=== PATIENT | male | born 1950 | race Caucasian/White ===

== ENCOUNTER 2025-01-19 09:24 | Outpatient (AMB) | payer MEDICARE, SELFPAY ==
--- NOTE | 2025-01-19 09:13 | A.OFFPC_ITS ---
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 Accompanied by: Daughter Allergies No Known Allergies Allergy (Verified 01/19/25 09:31) Medication List - Last Reconciled 01/19/25 by Domi Longo MD albuterol sulfate 90 mcg/actuation 2 puffs inhalation QID PRN doxycycline hyclate 100 mg PO DAILY gabapentin 100 mg PO BID metoprolol tartrate 12.5 mg PO BID olanzapine 5 mg PO BEDTIME pantoprazole 40 mg PO DAILY Tobacco use date assessed: 01/19/25 Fall risk assessment: No Falls in past year Last assessed Fall Risk: 01/19/25 Dental Screening Dental Screen Date: 01/19/25 Did you have a dental visit in the last 12 months?: No Did you have a dental problem in the last 6 months where you did not have access to dental care?: No HPI HPI Comments History of Present Illness Details The patient is a 74-year-old male presenting to [facility]. Ocular Injury post fall with trauma to face now s/p surgery: Had an eye procedure pending follow up with oculoplastics Dr. Camacho in Fall. Neuropathic Pain: Initially treated with gabapentin for eye pain post fall and fractures, not currently symptomatic. Peripheral Edema: Ankle swelling noted bilaterally, sometimes fluctuates with activity. Rosacea: Requires ongoing doxycycline for control of skin symptoms. Dementia/TBI/Anxiety- episodes of mood swings and aggression, take zyprexa at night Atrial fibrillation- now in NSR, has been on metoprolol since hospital course. The patient takes pantoprazole since prolonged hospital stay for traumatic brain injury that occurred after a fall from a ladder. No current heartburn. Medical History: - Atrial fibrillation - Neuropathic Pain - Anxiety - Dementia - TBI - Prolonged hospital course at [facility] - DVT- upper extremity - Rosacea Social History: - Lives with , daughter and granddau ghters. History of episodes of mood swings , aggression. Review of Systems - Gastrointestinal: Denies heartburn. - Ophthalmologic: No complaints followin g eye surgery. - Respiratory: Denies shortness of breat h or need for inhaler. - Cardiovascular: Denies chest pain but reports ankle edema. Physical Exam -General: NAD Chest: slightly coarse breath sounds bilaterally Card: normal s1, s2 Abd: SNTND, +BS Extremities: 1+ edema bilaterally Neuro: AOX3 Assessment and Plan 1. Rosacea - continue doxycycline 2. Neuropathic Pain - Continue gabapentin; symptoms controll ed. 3. Peripheral Edema - Modify diet; schedule ultrasound for e valuation. 4. - Reduce pantoprazole to every other day and monitor.. Discussion Notes During the visit, we discussed the management of ongoing medications and medical issues. Neuropathic pain management continues with gabapentin, as symptoms appear to be controlled. Discussed use of albuterol prn for any wheezing or SOB episodes. Follow up in 3 months. Patient Instructions - Continue pantoprazole every other day. - Plan for eye follow-up in January. - Maintain gabapentin dose. - Adjust diet to lower salt and sugar in take. - Expect an ultrasound appointment. - Refill and continue doxycycline. [facility] Medical History (Updated 01/19/25 @ 12:59 by Domi Longo MD) DVT of upper extremity (deep vein thrombosis) Atrial fibrillation Swelling of lower extremity Rosacea Traumatic brain injury Anxiety Dementia Social History Housing: House Patient Tobacco Use Status: Former Tobacco user Years Smoked: 60 years e-Cigarette/Vaping Use: Never Used service: Yes Current occupational status: disabled Questionnaire AUDIT C Alcohol Use Questionnaire (AUDIT-C) 1. How often do you have a drink containing alcohol?: Monthly or less 2. How many drinks containing alcohol do you have on a typical day when you are drinking?: 1 or 2 3. How often do you have six or more drinks on one occasion?: Never Total Score: 1 Physical exam (Primary Care) Vital Signs: Last Vital Signs Temp 97.6 F 01/19/25 09:29 Pulse 63 01/19/25 09:29 Resp 16 01/19/25 09:29 BP 120/70 01/19/25 09:29 Pulse Ox 94 01/19/25 09:29 Oxygen Delivery Method Room Air 01/19/25 09:29 BMI result Body Mass Index 28.8 Tobacco/Smoking Status: Tobacco use Status Tobacco use date assessed 01/19/25 01/19/25 09:14 Patient Tobacco Use Status Former Tobacco user 01/19/25 09:34 e-Cigarette/Vaping Use Never Used 01/19/25 09:34 Coding Level of Care Code Est Pt Level 4 (66017) Complex EM visit Add On G2211 Diagnoses Dementia F03.90 Dementia type: unspecified type Dementia severity: unspecified severity Swelling of lower extremity M79.89 Rosacea L71.9 Anxiety F41.9 Assessment & Plan Assessment & Plan (1) Dementia: Code(s): F03.90 - Unspecified dementia, unspecified severity, without behavioral disturbance, psychotic disturbance, mood disturbance, and anxiety Category: Medical Qualifiers: Dementia type: unspecified type Dementia severity: unspecified severity (2) Swelling of lower extremity: Code(s): M79.89 - Other specified soft tissue disorders Category: Medical Plan: obtain ultrasound r/o DVT (3) Rosacea: Code(s): L71.9 - Rosacea, unspecified Category: Medical (4) Anxiety: Code(s): F41.9 - Anxiety disorder, unspecified Category: Medical Plan - Adjust pantoprazole to every other day with plan for discontinuation. - Continue gabapentin. - Albuterol prn - Obtain ultrasound for leg swelling r/o DVT Orders: Orders US venous duplex LE BI Today M79.89 - Other specified soft tissue disorders Medications: New mupirocin 2% (Centany) 1 appl topical TID 22 grams 0RF doxycycline hyclate 100 mg PO DAILY 90 caps 3RF
[2025-01-19 09:29] VITALS: BP 120/70; PULSE 63; RESP 16; TEMP 36.4; O2SAT 94; BMI 28.8
--- OUTSIDE RECORDS SUMMARY | 2025-01-19 10:41 | XMS_ITS | Clinical Summary ---
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 10/23/19 24 Active albuterol 2.5 mg/3 mL (0.083%) nebulizer solution Inhale 1 vial (2.5 mg total) via nebulizer every 4 hours as needed for wheezing or shortness of breath. 10/23/19 24 Active apixaban (ELIQUIS) 5 mg tablet Take 1 tablet (5 mg total) by mouth every 12 hours. 10/23/19 24 Active bisacodyL (DULCOLAX) 10 mg suppository Insert 1 suppository (10 mg total) into the rectum daily as needed for constipation. 10/23/19 24 Active carboxymethylcellu lose (REFRESH PLUS) 0.5% ophthalmic solution Instill 1 drop into the right eye 3 times a day as needed for dry eyes. 10/23/19 24 Active cloNIDine (CATAPRES-TTS) 0.2 mg/[address] 1 patch (0.2 mg total) on the skin once a week. 10/28/19 24 Active metoprolol tartrate (LOPRESSOR) 25 mg tablet Take 0.5 tablets (12.5 mg total) by mouth every 12 hours. 10/23/19 24 Active nicotine (NICODERM CQ) 14 mg/[address] 1 patch on the skin once a day. 10/24/19 24 Active OLANZapine (ZyPREXA Zydis) 5 mg disintegrating tablet Dissolve 0.5 tablets (2.5 mg total) in the mouth 3 times a day. 10/23/[address] (PROTONIX) 40 mg tablet Take 1 tablet (40 mg total) by mouth once a day. 10/24/19 Active polyethylene glycol 3350 (MIRALAX) 17 gram packet Take 1 packet (17 g total) by mouth daily as needed for constipation. Mix powder in 4 to 8 oz of water, juice, coffee, or tea prior to administration. 10/23/19 Active senna (SENOKOT) 8.6 mg tablet Take 2 tablets (17.2 mg total) by mouth nightly. 10/23/19 Active white petrolatum-mineral oiL (GENTEAL PM) 94-3 % ointment ophthalmic ointment Apply 0.25 inches to right eye nightly. 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 10/02/2023 Impaired cognition 10/01/2023 Paroxysmal atrial fibrillation 09/29/2023 Overview (10/01/2023): New dx 09/2023 TBI (traumatic brain injury) 09/25/2023 Hemotympanum, right 09/22/2023 Assessment & Plan (09/22/2023 5:24 PM EDT): ENT c/s ofloxacin ear drops, follow up opt in 6-8 weeks Appreciate recs Fracture of right scapula 09/22/2023 Assessment & Plan (09/22/2023 5:40 PM EDT): Acute comminuted and displaced right scapular fracture - Ortho c/s Facial fracture 09/22/2023 Assessment & Plan (09/22/2023 5:40 PM EDT): Extensive right-sided calvarial and facial fractures Right maxillofacial fracture involving the zygomaticomaxillary complex involvement of the right sphenoid sinus with associated pneumocephalus - PRS c/s SDH (subdural hematoma) 09/22/2023 Assessment & Plan (09/22/2023 5:40 PM EDT): Bilateral SAH Small left SDH Mass effect with no midline shift - NSGY c/s [ ] repeat CTH 2230 Rib fractures 09/22/2023 Assessment & Plan (09/22/2023 5:40 PM EDT): Acute right 5-8th rib fractures Associated right pulmonary contusions and trace hemopneumothorax. 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 Resolved Problems Problem Noted Date Diagnosed Date Resolved Date Urinary retention 10/04/2023 2023 Hemothorax on right 10/04/2023 10/23/19 24 Postextubation stridor 10/04/202310/10 Persistent hyperactive delir ium due to multiple etiologies 09/26/2023 2023 Hyponatremia 09/22/2023 10/10/2023 Assessment & Plan (09/22/2023 5:36 PM EDT): Na 134 Leukocytosis 09/22/2023 2023 Elevated lactic acid level 09/22/2023 0 10/01/2023 Assessment & Plan (09/22/2023 5:24 PM EDT): LA 2.9 on admission, clinical significance unknown Fluid resuscitate until clear Social History Tobacco Use Types Packs/Day Years Used Date Smoking Tobacco: Every Day Cigarettes 0.5 56.8 Started: 1969 Tobacco Cessation:Ready to Q uit: Yes; Counseling Given: No Comments:Nicotine patch applied Sex and Gender Information Value Date Recorded Sex Assigned at Male 09/22/2023 5:30 PM EDT Legal Sex Male 11:48 AM EDT Gender Identity Male 09/22/2023 5:32 PM EDT Sexual Orientation Not on file Last Filed Vital Signs Vital Sign Reading Time Taken Comments Blood Pressure 132/74 2023 3:13 PM EDT Pulse 70 2023 3:13 PM EDT Temperature 36.6 C (97.9 F) 2023 3:13 PM EDT Respiratory Rate 18 2023 3:13 PM EDT Oxygen Saturation 95% 2023 3:13 PM EDT Inhaled Oxygen Concentration - - Weight 73.2 kg (161 lb 6 oz) 10/21/2023 6:05 AM EDT Height 182 cm (5' 11.65 ) 10/06/2023 7:59 AM EDT Body Mass Index 22.1 10/06/2023 7:59 AM EDT Plan of Treatment Health Maintenance Due Date Last Done Comments Cologuard 1950 Colon Cancer Screening 1950 Colonoscopy 1950 FOBT / Fit Test 1950 Hepatitis C Screening 1950 Sigmoidoscopy 1950 Zoster Vaccines (1 of 2) 10/24/1999 Alcohol/Substance Use Screening 03/25/2024 Depression Screening and Follow-Up 03/25/2024 Health Care Proxy Review 03/25/2024 Social Drivers of Health Annual Screening 03/25/2024 CT Lung Cancer Screening (Baseline) 10/01/2024 10/02/2023, 09/22/2023 RSV Vaccine (60+ years old and patients) (1 - 1-dose 75+ series) 2024 COVID-19 Vaccine ( - season) 2024 Influenza Vaccine (#1) 2024 , 02/02/2021, 03/23/2016, Additional history exists DTaP,Tdap,and Td Vaccines (2 - Td or Tdap) 10/01/2028 10/01/2018, 04/08/2009 Pneumococcal Vaccine: 50+ Years Completed 10/13/2020, 07/18/2017, 12/28/2009 Hepatitis B Vaccines Aged Out No long er eligible based on patient's age to complete this topic Procedures * Due to [place] [employer] law, this organization might not be sharing negative HIV tests. Procedure Name Priority Date/Time Associated Diagnosis Comments CT CHEST W CONTRAST Routine 10/02/2023 1 2:26 PM EDT from Last 3 Months or Most Recently Relevant to Health Maintenance Results * Due to [facility] law, this organization might not be sharing negative HIV tests. * CT Chest W Contrast (10/02/2023 12:26 PM EDT) Anatomical Region Laterality Modality Body Computed Tomogra phy 10/02/2023 2:00 PM EDT Impressions 10/02/2023 3:01 PM EDT 1. Increased bilateral pleural effusions (moderate on the right and new on the left) and bibasilar atelectasis, right greater than left. However, no dependent hyperdensities in the pleural effusions to suggest hemothorax. 2. Increased trace pericardial effusion. 3. I, Vannessa Arambula, have reviewed the examination and concur with the findings as reported or so edited. Trainee: Lupis Ulrich If this radiology report contains a blank impression section, it is an incomplete radiology report. Please contact the interpreting radiologist or applicable radiology division as soon as possible to obtain the completed interpretation. Workstation ID: [id number] Narrative 10/02/2023 3:[address] CHEST W CONTRAST Indication: assess for expanding hemothorax on right Technique: Examination was performed of the chest following the intravenous administration of intravenous contrast material. Axial, coronal and sagittal MPRs, axial MIP and coronal MinIP reformations were performed. Dose: For radiation dose control at least one of the following techniques was used in this procedure (1) Automated exposure control (2) Adjustment of the mA and/or kV according to patient size (3) Use of iterative reconstruction technique. Comparison: CT chest 09/22/2023. Chest radiographs 10/02/2023. FINDINGS: Neck and thoracic inlet: No abnormality. MEDIASTINUM AND LARGE VESSELS: Aorta Normal aortic diameter. Mild calcified atherosclerotic plaque. Pulmonary arteries Unremarkable shape and diameter. No acute central pulmonary embolism. Esophagus Nondilated. Nasogastric tube in place. Other mediastinal findings Left PICC tip in the lower SVC. HEART: Cardiac size Mild cardiomegaly. Coronary arteries Mild coronary calcifications. Valves No valvular calcifications. Pericardium Increased trace pericardial effusion. LYMPH NODES: Supraclavicular and axillary Normal sized lymph nodes, no enlarged lymph nodes. Mediastinal Similar mildly enlarged right paratracheal lymph nodes measuring up to 13 mm in short axis (2041:288), likely reactive. Hilar Normal sized lymph nodes, no enlarged lymph nodes. Others None. LUNG PARENCHYMA: Increased bibasilar relaxation atelectasis, right greater than left with near complete collapse of the right lower lobe. Previously seen right pulmonary consolidation/contusions either resolved or obscured by increased pleural effusions and right basilar atelectasis. Airways: Endotracheal tube in place, terminating in the upper thoracic trachea. Pleura: Bilateral pleural effusions, increased moderate on the right and new small on the left. No pneumothorax. UPPER ABDOMEN: Nasogastric tube tip in the gastric lumen. Atherosclerotic calcification of the abdominal aorta. Small splenule at the splenic hilum. CHEST WALL AND BONES: Redemonstrated displaced/comminuted fractures of the right 5th-8th ribs and right scapular body, similar to prior. Moderate degenerative changes of the thoracic spine. Sclerotic areas in bilateral medial clavicles, likely bone islands. Resulting Agency Comment [id number] Procedure Note Vannessa Arambula MD - 10/02/2023 CT CHEST W CONTRAST Indication: assess for expanding hemothorax on right Technique: Examination was performed of the chest following theintravenous administration of intravenous contrast material. Axial,coronal and sagittal MPRs, axial MIP and coronal MinIP reformations wereperformed. Dose: For radiation dose control at least one of the following techniqueswas used in this procedure (1) Automated exposure control (2) Adjustmentof the mA and/or kV according to patient size (3) Use of iterativereconstruction technique. Comparison: CT chest 09/22/2023. Chest radiographs 10/02/2023. FINDINGS: Neck and thoracic inlet: No abnormality. MEDIASTINUM AND LARGE VESSELS: Aorta Normal aortic diameter. Mild calcified atherosclerotic plaque. Pulmonary arteries Unremarkable shape and diameter. No acute central pulmonary embolism. Esophagus Nondilated. Nasogastric tube in place. Other mediastinal findings Left PICC tip in the lower SVC. HEART: Cardiac size Mild cardiomegaly. Coronary arteries Mild coronary calcifications. Valves No valvular calcifications. Pericardium Increased trace pericardial effusion. LYMPH NODES: Supraclavicular and axillary Normal sized lymph nodes, no enlarged lymph nodes. Mediastinal Similar mildly enlarged right paratracheal lymph nodes measuring up to 13mm in short axis (2040:288), likely reactive. Hilar Normal sized lymph nodes, no enlarged lymph nodes. Others None. LUNG PARENCHYMA: Increased bibasilar relaxation atelectasis, right greater than left withnear complete collapse of the right lower lobe. Previously seen rightpulmonary consolidation/contusions either resolved or obscured byincreased pleural effusions and right basilar atelectasis. Airways: Endotracheal tube in place, terminating in the upper thoracic trachea. Pleura: Bilateral pleural effusions, increased moderate on the right and new smallon the left. No pneumothorax. UPPER ABDOMEN: Nasogastric tube tip in the gastric lumen. Atherosclerotic calcificationof the abdominal aorta. Small splenule at the splenic hilum. CHEST WALL AND BONES: Redemonstrated displaced/comminuted fractures of the right 5th-8th ribsand right scapular body, similar to prior. Moderate degenerative changesof the thoracic spine. Sclerotic areas in bilateral medial clavicles,likely bone islands. IMPRESSION: 1. Increased bilateral pleural effusions (moderate on the right and newon the left) and bibasilar atelectasis, right greater than left.However, no dependent hyperdensities in the pleural effusions to suggesthemothorax. 2. Increased trace pericardial effusion. 3. I, Vannessa Arambula, have reviewed the examination and concur with thefindings as reported or so edited. Trainee: Lupis Ulrich If this radiology report contains a blank impression section, it is anincomplete radiology report. Please contact the interpreting radiologistor applicable radiology division as soon as possible to obtain thecompleted interpretation. 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 Expl anation Health Care Proxy 10/04/2023 4:39 PM 07-15 Health Care Proxy 10/04/2023 1:19 PM 07-15 Health Care Proxy 09/24/2023 8:26 AM in g Second Witness Signature 07/15/2013 * Full Code (Latest Code Status on File) Date Activated Date Inactivated Comments 09/22/2023 10:03 PM 2023 8:49 PM Healthcare Agents on File Name Relationship Healthcare Agent [facility] p Communication Marline Tanvi Daughter Alternate Health Care A gent Jj Tinajero Spouse Health Care Agent Care Teams Welder Operator Relationship Specialty Start Date End Date Ref, Has No Pcp Or DO NOT EDIT THIS RECORD VIA PROVIDER ON THE FLY PCP - General 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
--- OUTSIDE RECORDS SUMMARY | 2025-01-19 10:41 | XMS_ITS | Encounter Summary ---
Author Organization [facility] Address [address] [place] [address] Care Team Providers Care Muck Boss Name Role Phone Ref, Has No Pcp Or Primary Care Provider Unavail able Encounter Details Date Type Department Care Team (Late st Contact Info) Description 2023 Lab Requisition [facility] [address] [place] [address] [facility] [address] [place] [id number] Social History Tobacco Use Types Packs/Day Years Used Date Smoking Tobacco: Every Day Cigarettes 0.5 56.8 Started: 1969 Comments:Nicotine patch appl ied Sex and Gender Information Value Date Recorded Sex Assigned at Male 09/22/2023 5:30 PM EDT Legal Sex Male 11:48 AM EDT Gender Identity Male 09/22/2023 5:32 PM EDT Sexual Orientation Not on file documented as of this encounter Plan of Treatment Not on file documented as of this encounter Procedures * Due to [place] state law, this organization might not be sharing negative HIV tests. Procedure Name Priority Date/Time Associated Diagnosis Comments CBC AUTO DIFFERENTIAL Routine 11/04/2023 5:00 AM EDT BASIC METABOLIC PANEL Routine 11/04/2023 5:00 AM EDT CBC AUTO DIFFERENTIAL Routine 10/31/2023 5:00 AM EDT BASIC METABOLIC PANEL Routine 10/31/2023 5:00 AM EDT CBC AUTO DIFFERENTIAL Routine 10/28/2023 5:00 AM EDT BASIC METABOLIC PANEL Routine 10/28/2023 5:00 AM EDT CBC AUTO DIFFERENTIAL Routine 10/24/2023 5:00 AM EDT ALBUMIN Routine 10/24/2023 5:00 AM EDT BASIC METABOLIC PANEL Routine 10/24/2023 5:00 AM EDT documented in this encounter Results * Due to [place] state law, this organization might not be sharing negative HIV tests. * Basic Metabolic Panel (11/04/2023 5:00 AM EDT) NA 141 136 - 145 mmol/L 11/04/2023 11:27 AM EDT [facility] K 4.0 3.5 - 5.1 mmol/L 11/04/2023 11:27 AM EDT [facility] Cl 102 98 - 109 mmol/L 11/04/2023 11:27 AM EDT [facility] CO2 32 23 - 32 mmol/L 11/04/2023 11:27 AM EDT [facility] BUN 20 8 - 23 mg/dL 11/04/2023 11:27 AM EDT [facility] Creatinine 0.73 0.50 - 1.12 mg/dL 11/04/2023 11:27 AM EDT [facility] Glucose 84 60 - 99 mg/dL 11/04/2023 11:27 AM EDT [facility] Calcium 9.8 8.4 - 10.4 mg/dL 11/04/2023 11:27 AM EDT [facility] Anion Gap 11 >=0 11/04/2023 11:27 AM EDT [facility] eGFR >90 >=60 mL/min/1. 73m2 11/04/2023 11:27 AM EDT [facility] Comment:The estimated glomer ular filtration rate (eGFR) is calculated using a new formula developed by the NKF-ASN task force to eliminate race-based correction factors. The new formula uses serum/plasma creatinine, age, and gender to determine eGFR. A value below 60mls/min might indicate kidney disease and will be flagged. For additional information, see Tyree et al, Am J Kidney Dis. 2021;79(2):268- 288, A Unifying Approach for GFR estimation: Recommendations of the NKF-ASN Task Force on Reassessing the Inclusion of Race in Diagnosing Kidney Disease . Blood Structure of peripheral vein / Unknown Venipuncture / Unknown 11/04/2023 5:00 AM EDT 11/04/2023 8:23 AM EDT [facility] - 11/04/2023 11:27 AM EDT NUR2\S\209\S\A\S\0156\S\S\BED\S\0156 us Walter Atoofi PA LAB BLOOD ORDERABLES Final Resul t [facility] [address] [place] [address] [address] [place] [address], * (ABNORMAL) CBC Auto Differential (11/04/2023 5:00 AM EDT) WBC 11.8(H) 4.8 - 10.8 10*3/uL 11/04/2023 10:59 AM EDT [facility] RBC 3.54(L) 4.70 - 6.10 10*6/uL 11/04/2023 10:59 AM EDT [facility] Hemoglobin 10.6(L) 13.7 - 16.5 g/dL 11/04/2023 10:59 AM EDT [facility] Hematocrit 32.1(L) 40.5 - 48.5 % 11/04/2023 10:59 AM EDT [facility] MCV 90.7 80.0 - 94.0 fL 11/04/2023 10:59 AM EDT [facility] MCH 29.9 26.0 - 34.0 pg 11/04/2023 10:59 AM EDT [facility] MCHC 33.0 31.0 - 36.0 g/dL 11/04/2023 10:59 AM EDT [facility] RDW 13.7 12.0 - 15.0 % 11/04/2023 10:59 AM EDT [facility] RDW Standard Deviation 45.9(H) 35.1 - 43.9 fL 11/04/2023 10:59 AM EDT [facility] Platelets 239 140 - 440 10*3/uL 11/04/2023 10:59 AM EDT [facility] MPV 10.4 9.4 - 12.4 fL 11/04/2023 10:59 AM EDT [facility] Neutrophil % 66.8 50.0 - 75.0 % 11/04/2023 10:59 AM EDT [facility] Immature Grans % 0.3 0.0 - 0.9 % 11/04/2023 10:59 AM EDT [facility] Lymphocyte % 26.4 20.0 - 44.0 % 11/04/2023 10:59 AM EDT [facility] Monocyte % 5.7 0.0 - 14.0 % 11/04/2023 10:59 AM EDT [facility] Eosinophil % 0.5 0.0 - 5.0 % 11/04/2023 10:59 AM EDT [facility] Basophil % 0.3 0.0 - 2.0 % 11/04/2023 10:59 AM EDT [facility] Neutrophil # 7.91(H) 1.80 - 7.70 10*3/uL 11/04/2023 10:59 AM EDT [facility] Immature Grans # 0.04(H) 0.00 - 0.03 10*3/uL 11/04/2023 10:59 AM EDT [facility] Lymphocyte # 3.10 1.00 - 4.75 10*3/uL 11/04/2023 10:59 AM EDT [facility] Monocyte # 0.70 0.00 - 6.00 10*3/uL 11/04/2023 10:59 AM EDT [facility] Eosinophil # 0.10 0.00 - 0.80 10*3/uL 11/04/2023 10:59 AM EDT [facility] Basophil # <0.03 0.00 - 0.20 10*3/uL 11/04/2023 10:59 AM EDT [facility] nRBC % 0.0 0 - 0 /100 WBCs 11/04/2023 10:59 AM EDT [facility] nRBC # <0.01 0.00 - 0.13 10*3/uL 11/04/2023 10:59 AM EDT [facility] Blood Structure of peripheral vein / Unknown Venipuncture / Unknown 11/04/2023 5:00 AM EDT 11/04/2023 8:20 AM EDT us Walter Atoofi PA LAB BLOOD ORDERABLES Final Resul t [facility] [address] [facility] [address] [place] [address], [place] [phone] * Basic Metabolic Panel (10/31/2023 5:00 AM EDT) NA 138 136 - 145 mmol/L 10/31/2023 10:07 AM EDT [facility] K 4.1 3.5 - 5.1 mmol/L 10/31/2023 10:07 AM EDT [facility] Cl 100 98 - 109 mmol/L 10/31/2023 10:07 AM EDT [facility] CO2 31 23 - 32 mmol/L 10/31/2023 10:07 AM EDT [facility] BUN 20 8 - 23 mg/dL 10/31/2023 10:07 AM EDT [facility] Creatinine 0.78 0.50 - 1.12 mg/dL 10/31/2023 10:07 AM EDT [facility] Glucose 87 60 - 99 mg/dL 10/31/2023 10:07 AM EDT [facility] Calcium 10.0 8.4 - 10.4 mg/dL 10/31/2023 10:07 AM EDT [facility] Anion Gap 11 >=0 10/31/2023 10:07 AM EDT [facility] eGFR >90 >=60 mL/min/1. 73m2 10/31/2023 10:07 AM EDT [facility] Comment:The estimated glomer ular filtration rate (eGFR) is calculated using a new formula developed by the NKF-ASN task force to eliminate race-based correction factors. The new formula uses serum/plasma creatinine, age, and gender to determine eGFR. A value below 60mls/min might indicate kidney disease and will be flagged. For additional information, see Tyree et al, Am J Kidney Dis. 2021;79(2):268- 288, A Unifying Approach for GFR estimation: Recommendations of the NKF-ASN Task Force on Reassessing the Inclusion of Race in Diagnosing Kidney Disease . Blood Structure of peripheral vein / Unknown Venipuncture / Unknown 10/31/2023 5:00 AM EDT 10/31/2023 6:42 AM EDT Narrative [facility] - 10/31/2023 10:07 AM EDT NUR2\S\209\S\A\S\0156\S\S\BED\S\0156 us Walter Atoofi [place] LAB BLOOD ORDERABLES Final Resul t [facility] [address] [facility] [address] [place] [address], * (ABNORMAL) CBC Auto Differential (10/31/2023 5:00 AM EDT) WBC 11.4(H) 4.8 - 10.8 10*3/uL 10/31/2023 9:52 AM EDT [facility] RBC 3.64(L) 4.70 - 6.10 10*6/uL 10/31/2023 9:52 AM EDT [facility] Hemoglobin 10.6(L) 13.7 - 16.5 g/dL 10/31/2023 9:52 AM EDT [facility] Hematocrit 33.2(L) 40.5 - 48.5 % 10/31/2023 9:52 AM EDT [facility] MCV 91.2 80.0 - 94.0 fL 10/31/2023 9:52 AM EDT [facility] MCH 29.1 26.0 - 34.0 pg 10/31/2023 9:52 AM EDT [facility] MCHC 31.9 31.0 - 36.0 g/dL 10/31/2023 9:52 AM EDT [facility] RDW 13.5 12.0 - 15.0 % 10/31/2023 9:52 AM EDT [facility] RDW Standard Deviation 45.0(H) 35.1 - 43.9 fL 10/31/2023 9:52 AM EDT [facility] Platelets 273 140 - 440 10*3/uL 10/31/2023 9:52 AM EDT [facility] MPV 10.0 9.4 - 12.4 fL 10/31/2023 9:52 AM EDT [facility] Neutrophil % 60.9 50.0 - 75.0 % 10/31/2023 9:52 AM EDT [facility] Immature Grans % 0.9 0.0 - 0.9 % 10/31/2023 9:52 AM EDT [facility] Lymphocyte % 31.8 20.0 - 44.0 % 10/31/2023 9:52 AM EDT [facility] Monocyte % 5.1 0.0 - 14.0 % 10/31/2023 9:52 AM EDT [facility] Eosinophil % 1.0 0.0 - 5.0 % 10/31/2023 9:52 AM EDT [facility] Basophil % 0.3 0.0 - 2.0 % 10/31/2023 9:52 AM EDT [facility] Neutrophil # 6.96 1.80 - 7.70 10*3/uL 10/31/2023 9:52 AM EDT [facility] Immature Grans # 0.10(H) 0.00 - 0.03 10*3/uL 10/31/2023 9:52 AM EDT [facility] Lymphocyte # 3.60 1.00 - 4.75 10*3/uL 10/31/2023 9:52 AM EDT [facility] Monocyte # 0.60 0.00 - 6.00 10*3/uL 10/31/2023 9:52 AM EDT [facility] Eosinophil # 0.10 0.00 - 0.80 10*3/uL 10/31/2023 9:52 AM EDT [facility] Basophil # <0.03 0.00 - 0.20 10*3/uL 10/31/2023 9:52 AM EDT [facility] nRBC % 0.0 0 - 0 /100 WBCs 10/31/2023 9:52 AM EDT [facility] nRBC # <0.01 0.00 - 0.13 10*3/uL 10/31/2023 9:52 AM EDT [facility] Blood Structure of peripheral vein / Unknown Venipuncture / Unknown 10/31/2023 5:00 AM EDT 10/31/2023 6:42 AM EDT us Walter Atoofi PA LAB BLOOD ORDERABLES Final Resul t [facility] [address] [facility] [address] [place] [address], * Basic Metabolic Panel (10/28/2023 5:00 AM EDT) NA 138 136 - 145 mmol/L 10/28/2023 9:48 AM EDT [facility] K 4.5 3.5 - 5.1 mmol/L 10/28/2023 9:48 AM EDT [facility] Cl 101 98 - 109 mmol/L 10/28/2023 9:48 AM EDT [facility] CO2 29 23 - 32 mmol/L 10/28/2023 9:48 AM EDT [facility] BUN 21 8 - 23 mg/dL 10/28/2023 9:48 AM EDT [facility] Creatinine 0.76 0.50 - 1.12 mg/dL 10/28/2023 9:48 AM EDT [facility] Glucose 90 60 - 99 mg/dL 10/28/2023 9:48 AM EDT [facility] Calcium 9.6 8.4 - 10.4 mg/dL 10/28/2023 9:48 AM EDT [facility] Anion Gap 13 >=0 10/28/2023 9:48 AM EDT [facility] eGFR >90 >=60 mL/min/1. 73m2 10/28/2023 9:48 AM EDT [facility] Comment:The estimated glomer ular filtration rate (eGFR) is calculated using a new formula developed by the NKF-ASN task force to eliminate race-based correction factors. The new formula uses serum/plasma creatinine, age, and gender to determine eGFR. A value below 60mls/min might indicate kidney disease and will be flagged. For additional information, see Tyree et al, Am J Kidney Dis. 2021;79(2):268- 288, A Unifying Approach for GFR estimation: Recommendations of the NKF-ASN Task Force on Reassessing the Inclusion of Race in Diagnosing Kidney Disease . Blood Structure of peripheral vein / Unknown Venipuncture / Unknown 10/28/2023 5:00 AM EDT 10/28/2023 7:22 AM EDT Narrative [facility] - 10/28/2023 9:48 AM EDT NUR2\S\205\S\A\S\0156\S\S\BED\S\0156 us Walter Atoofi PA LAB BLOOD ORDERABLES Final Resul t [facility] [address] [place] [address], [place] [phone] * (ABNORMAL) CBC Auto Differential (10/28/2023 5:00 AM EDT) WBC 10.1 4.8 - 10.8 10*3/uL 10/28/2023 9:05 AM EDT [facility] RBC 3.34(L) 4.70 - 6.10 10*6/uL 10/28/2023 9:05 AM EDT [facility] Hemoglobin 9.8(L) 13.7 - 16.5 g/dL 10/28/2023 9:05 AM EDT [facility] Hematocrit 29.9(L) 40.5 - 48.5 % 10/28/2023 9:05 AM EDT [facility] MCV 89.5 80.0 - 94.0 fL 10/28/2023 9:05 AM EDT [facility] MCH 29.3 26.0 - 34.0 pg 10/28/2023 9:05 AM EDT [facility] MCHC 32.8 31.0 - 36.0 g/dL 10/28/2023 9:05 AM EDT [facility] RDW 13.2 12.0 - 15.0 % 10/28/2023 9:05 AM EDT [facility] RDW Standard Deviation 43.3 35.1 - 43.9 fL 10/28/2023 9:05 AM EDT [facility] Platelets 260 140 - 440 10*3/uL 10/28/2023 9:05 AM EDT [facility] MPV 10.1 9.4 - 12.4 fL 10/28/2023 9:05 AM EDT [facility] Neutrophil % 56.0 50.0 - 75.0 % 10/28/2023 9:05 AM EDT [facility] Immature Grans % 1.1(H) 0.0 - 0.9 % 10/28/2023 9:05 AM EDT [facility] Lymphocyte % 31.7 20.0 - 44.0 % 10/28/2023 9:05 AM EDT [facility] Monocyte % 9.5 0.0 - 14.0 % 10/28/2023 9:05 AM EDT [facility] Eosinophil % 1.4 0.0 - 5.0 % 10/28/2023 9:05 AM EDT [facility] Basophil % 0.3 0.0 - 2.0 % 10/28/2023 9:05 AM EDT [facility] Neutrophil # 5.69 1.80 - 7.70 10*3/uL 10/28/2023 9:05 AM EDT [facility] Immature Grans # 0.11(H) 0.00 - 0.03 10*3/uL 10/28/2023 9:05 AM EDT [facility] Lymphocyte # 3.20 1.00 - 4.75 10*3/uL 10/28/2023 9:05 AM EDT [facility] Monocyte # 1.00 0.00 - 6.00 10*3/uL 10/28/2023 9:05 AM EDT [facility] Eosinophil # 0.10 0.00 - 0.80 10*3/uL 10/28/2023 9:05 AM EDT [facility] Basophil # <0.03 0.00 - 0.20 10*3/uL 10/28/2023 9:05 AM EDT [facility] nRBC % 0.0 0 - 0 /100 WBCs 10/28/2023 9:05 AM EDT [facility] nRBC # <0.01 0.00 - 0.13 10*3/uL 10/28/2023 9:05 AM EDT [facility] Blood Structure of peripheral vein / Unknown Venipuncture / Unknown 10/28/2023 5:00 AM EDT 10/28/2023 7:23 AM EDT us Walter Atoofi PA LAB BLOOD ORDERABLES Final Resul t Performing Organization Address City/State/RUST Co de Phone Number [facility] [address] [address], [place] [phone] * Albumin (10/24/2023 5:00 AM EDT) Pathologist [facility] Albumin 3.5 3.5 - 5.0 g/dL 10/24/2023 9:44 AM EDT [facility] Blood Structure of peripheral vein / Unknown Venipuncture / Unknown 10/24/2023 5:00 AM EDT 10/24/2023 6:55 AM EDT Narrative [facility] - 10/24/2023 9:44 AM EDT NUR2\S\205\S\A\S\0156\S\S\BED\S\0156 NUR2\S\205\S\A\S\0156\S\S\BED\S\0156 us Walter Atoofi PA LAB BLOOD ORDERABLES Final Resul t [facility] [address] [address], [place] [phone] * (ABNORMAL) Basic Metabolic Panel (10/24/2023 5:00 AM EDT) Pathologist [facility] NA 139 136 - 145 mmol/L 10/24/2023 9:44 AM EDT [facility] K 3.9 3.5 - 5.1 mmol/L 10/24/2023 9:44 AM EDT [facility] Cl 104 98 - 109 mmol/L 10/24/2023 9:44 AM EDT [facility] CO2 26 23 - 32 mmol/L 10/24/2023 9:44 AM EDT [facility] BUN 35(H) 8 - 23 mg/dL 10/24/2023 9:44 AM EDT [facility] Creatinine 0.69 0.50 - 1.12 mg/dL 10/24/2023 9:44 AM EDT [facility] Glucose 97 60 - 99 mg/dL 10/24/2023 9:44 AM EDT [facility] Calcium 10.0 8.4 - 10.4 mg/dL 10/24/2023 9:44 AM EDT [facility] Anion Gap 13 >=0 10/24/2023 9:44 AM EDT [facility] eGFR >90 >=60 mL/min/1. 73m2 10/24/2023 9:44 AM EDT [facility] Comment:The estimated glomer ular filtration rate (eGFR) is calculated using a new formula developed by the NKF-ASN task force to eliminate race-based correction factors. The new formula uses serum/plasma creatinine, age, and gender to determine eGFR. A value below 60mls/min might indicate kidney disease and will be flagged. For additional information, see Tyree et al, Am J Kidney Dis. 2021;79(2):268- 288, A Unifying Approach for GFR estimation: Recommendations of the NKF-ASN Task Force on Reassessing the Inclusion of Race in Diagnosing Kidney Disease . Blood Structure of peripheral vein / Unknown Venipuncture / Unknown 10/24/2023 5:00 AM EDT 10/24/2023 6:55 AM EDT [facility] - 10/24/2023 9:44 AM EDT NUR2\S\205\S\A\S\0156\S\S\BED\S\0156 NUR2\S\205\S\A\S\0156\S\S\BED\S\0156 us Walter Atoofi PA LAB BLOOD ORDERABLES Final Resul t [facility] [address] [facility] [address] [place] [address], * (ABNORMAL) CBC Auto Differential (10/24/2023 5:00 AM EDT) WBC 7.4 4.8 - 10.8 10*3/uL 10/24/2023 9:10 AM EDT [facility] RBC 3.17(L) 4.70 - 6.10 10*6/uL 10/24/2023 9:10 AM EDT [facility] Hemoglobin 9.3(L) 13.7 - 16.5 g/dL 10/24/2023 9:10 AM EDT [facility] Hematocrit 28.5(L) 40.5 - 48.5 % 10/24/2023 9:10 AM EDT [facility] MCV 89.9 80.0 - 94.0 fL 10/24/2023 9:10 AM EDT [facility] MCH 29.3 26.0 - 34.0 pg 10/24/2023 9:10 AM EDT [facility] MCHC 32.6 31.0 - 36.0 g/dL 10/24/2023 9:10 AM EDT [facility] RDW 13.1 12.0 - 15.0 % 10/24/2023 9:10 AM EDT [facility] RDW Standard Deviation 43.0 35.1 - 43.9 fL 10/24/2023 9:10 AM EDT [facility] Platelets 223 140 - 440 10*3/uL 10/24/2023 9:10 AM EDT [facility] MPV 10.4 9.4 - 12.4 fL 10/24/2023 9:10 AM EDT [facility] Neutrophil % 55.9 50.0 - 75.0 % 10/24/2023 9:10 AM EDT [facility] Immature Grans % 0.8 0.0 - 0.9 % 10/24/2023 9:10 AM EDT [facility] Lymphocyte % 32.0 20.0 - 44.0 % 10/24/2023 9:10 AM EDT [facility] Monocyte % 10.1 0.0 - 14.0 % 10/24/2023 9:10 AM EDT [facility] Eosinophil % 0.8 0.0 - 5.0 % 10/24/2023 9:10 AM EDT [facility] Basophil % 0.4 0.0 - 2.0 % 10/24/2023 9:10 AM EDT [facility] Neutrophil # 4.16 1.80 - 7.70 10*3/uL 10/24/2023 9:10 AM EDT [facility] Immature Grans # 0.06(H) 0.00 - 0.03 10*3/uL 10/24/2023 9:10 AM EDT [facility] Lymphocyte # 2.40 1.00 - 4.75 10*3/uL 10/24/2023 9:10 AM EDT [facility] Monocyte # 0.80 0.00 - 6.00 10*3/uL 10/24/2023 9:10 AM EDT [facility] Eosinophil # 0.10 0.00 - 0.80 10*3/uL 10/24/2023 9:10 AM EDT [facility] Basophil # <0.03 0.00 - 0.20 10*3/uL 10/24/2023 9:10 AM EDT [facility] nRBC % 0.0 0 - 0 /100 WBCs 10/24/2023 9:10 AM EDT [facility] nRBC # <0.01 0.00 - 0.13 10*3/uL 10/24/2023 9:10 AM EDT [facility] Blood Structure of peripheral vein / Unknown Venipuncture / Unknown 10/24/2023 5:00 AM EDT 10/24/2023 6:56 AM EDT us Walter Atoofi PA LAB BLOOD ORDERABLES Final Resul t [facility] [address] [place] [address], [place] [phone] documented in this encounter Visit Diagnoses Not on filedocumented in this encounter Care Teams Muck Boss Relationship Specialty Start Date End Date Ref, Has No Pcp Or DO NOT EDIT THIS RECORD VIA [facility] PCP - General Child Care Coordinator 09/22/23 documented as of this encounter
--- OUTSIDE RECORDS SUMMARY | 2025-01-19 10:41 | XMS_ITS | Clinical Summary ---
Author Organization [facility] Address [address] [place] [address] Care Team Providers Care Biology Intern Name Role Phone Domi Longo MD Primary Care Provider [phone]- [phone] Allergies No known active allergies Medications acetaminophen (TYLENOL) 325 MG tablet Take 650 mg by mouth 4 times daily (every 6 hours) as needed. 4 Active albuterol (PROVENTIL) (0.083%) 2.5 mg/3 mL nebulizer solution Inhale 2.5 mg. 4 Active Eliquis 5 MG tablet Take 5 mg by mouth 2 times a day. Active cloNIDine (SBBHMLPS-CNA-4) 0.2 mg/24 hr Apply 1 patch topically. 4 Active gabapentin (NEURONTIN) 100 MG capsule Take 100 mg by mouth. 4 Active metoPROLOL TARTRATE (LOPRESSOR) 25 MG tablet Take 12.5 mg by mouth 2 times a day. Active OLANZapine zydis (ZyPREXA ZYDIS) 5 MG disintegrating tablet Take 5 mg by mouth. 4 Active PANTOprazole (PROTONIX) 40 MG EC tablet Take 40 mg by mouth. 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 03/09/2024 Rosacea 03/09/2024 Sleep apnea 03/09/2024 Activity of daily living alteration 10/15/2023 Acute deep vein thrombosis ( DVT) of axillary vein of left upper extremity 10/10/2023 Impaired mobility 10/10/2023 Traumatic subarachnoid hemor rhage with loss of consciousness of 30 minutes or less 10/02/2023 Memory change 10/01/2023 Paroxysmal atrial fibrillation 09/29/2023 Overview (03/09/2024): New dx 09/2023 TBI (traumatic brain injury) 09/25/2023 Encephalopathy 09/22/2023 Facial fracture 09/22/2023 Fracture of right scapula 09/22/2023 Hemotympanum, right 09/22/2023 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 Rib fractures 09/22/2023 Temporal bone fracture 09/22/2023 SDH (subdural hematoma) 09/22/2023 Immunizations Immunization Administration Dates Next Due Influenza Virus Trivalent Sp lit Vaccine (MDV) IM 03/12/2022,02/02/2021,03/23/2016,12/25,12/28/2009 Pneumococcal Conjugate 13-Valent 07/18/2017 Pneumococcal Polysaccharide 23-Valent 10/13/2020 ,12/28/2009 Td, Unspecified 04/08/2009 Tdap 10/01/2018 Social History Tobacco Use Types Packs/Day Years Used Date Smoking Tobacco: Never Passive Smoke Exposure: Never Smokeless Tobacco: Never Tobacco Cessation:Counseling Given: Not Answered Sex and Gender Information Value Date Recorded Sex Assigned at Male 01/28/2024 11:29 AM EST Legal Sex Male 1:12 PM EDT Gender Identity Male 01/28/2024 11:29 AM EST Sexual Orientation Choose not to disclose 2023 11:29 AM EST Last Filed Vital Signs Vital Sign Reading Time Taken Comments Blood Pressure - - Pulse - - Temperature - - Respiratory Rate - - Oxygen Saturation - - Inhaled Oxygen Concentration - - Weight - - Height 182.9 cm (6') 03/12/2024 11:41 AM EST Body Mass Index - - Plan of Treatment Health Maintenance Due Date Last Done Comments Advance Care Planning 1950 Hepatitis C Virus Screening 1950 Colonoscopy 1994 Zoster (Shingles) Vaccine (1 of 2) 10/24/1999 Influenza Vaccine 2024 03/12/2022, , 03/23/2016, Additional history exists RSV Vaccine 50 years and older and Patients (1 - 1-dose 75+ series) 2024 COVID-19 Vaccine (1 - 2023- season) 2024 DTaP/Tdap/Td Vaccines (2 - Td or Tdap) 10/01/2028 10/01/2018, 04/08/2009 Pneumococcal Vaccines 50+ Completed 2020, 07/18/2017, 12/28/2009 Hepatitis B Vaccines Aged Out No long er eligible based on patient's age to complete this topic Insurance [employer] Care Teams Biology Intern Relationship Specialty Start Date End Date Domi Longo MD [address] [place] [address] PCP - General Internal Medicine 03/09/24
--- OUTSIDE RECORDS SUMMARY | 2025-01-19 10:41 | XMS_ITS | Encounter Summary ---
Author Organization [facility] Address [address] [place] [address] Care Team Providers Care Roll Scale Man Name Role Phone Ref, Has No Pcp Or Primary Care Provider Unavail able Encounter Details Date Type Department Care Team (Late st Contact Info) Description 10/15/2023 Ophth Exam [facility] [address] [place] [phone] Chloe Mike MD [address] [place] [address] Ophthalmology [place] [phone] Social History Tobacco Use Types Packs/Day Years [...] on file documented as of this encounter Visit Diagnoses Not on filedocumented in this encounter Care Teams Roll Scale Man Relationship Specialty Start Date End Date Ref, Has No Pcp Or DO NOT EDIT THIS RECORD VIA PROVIDER ON THE FLY PCP - General Sales Support Representative 09/22/23 documented as of this encounter
--- OUTSIDE RECORDS SUMMARY | 2025-01-19 10:41 | XMS_ITS ---
Author Name [facility] Organization Unknown History of Medication Use Medication Directions Dispensed Refills Start Date End Date Stat us gabapentin (NEURONTIN) 100 MG capsule Take 100 mg by mouth. 12/20/2023 active cloNIDine (AJAIWPFZ-NOY-5) 0.2 mg/24 hr Apply 1 patch topically. 11/08/2023 active acetaminophen (TYLENOL) 325 MG tablet Take 650 mg by mouth 4 times daily (every 6 hours) as needed. 2023 active albuterol (PROVENTIL) (0.083%) 2.5 mg/3 mL nebulizer solution Inhale 2.5 mg. 2023 ac tive OLANZapine zydis (ZyPREXA ZYDIS) 5 MG disintegrating tablet Take 5 mg by mouth. 2023 active Eliquis 5 MG tablet Take 5 mg by mouth 2 times a day. active metoPROLOL TARTRATE (LOPRESSOR) 25 MG tablet Take 12.5 mg by mouth 2 times a day. active No known medications No known medications active PANTOprazole (PROTONIX) 40 MG EC tablet Take 40 mg by mouth. active Problems Problem Status Onset Date Problem Type Date of Resolution Source Deep vein thrombosis (DVT) of left upper extremity active 2024-03-09 ProblemAct [facility] Alcohol abuse active 2024-03-09 ProblemAct [facility] Hemotympanum, right active 2023-09-22 ProblemAct [facility] Paroxysmal atrial fibrillation active 2023-09-29 ProblemAct [facility] Mixed conductive and sensorineural hearing loss of right ear with restricted hearing of left ear active [facility] Temporal bone fracture active 2023-09-22 ProblemAct [facility] Acute deep vein thrombosis (DVT) of axillary vein of left upper extremity active 2023-10-10 ProblemAct [facility] Encephalopathy active 2023-09-22 ProblemAct [facility] Traumatic subarachnoid hemorrhage with loss of consciousness of 30 minutes or less active 2023-10-02 ProblemAct [facility] Activity of daily living alteration active 2023-10-15 ProblemAct [facility] Adjustment disorder active 2024-03-09 ProblemAct [facility] Memory change active 2023-10-01 ProblemAct [facility] Rosacea active 2024-03-09 ProblemAct [facility] Sleep apnea active 2024-03-09 ProblemAct [facility] Hemothorax, right active 2024-03-09 ProblemAct [facility] TBI (traumatic brain injury) active 2023-09-25 ProblemAct [facility] 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 active 2024-03-09 ProblemAct [facility] SDH (subdural hematoma) active 2023-09-22 ProblemAct [facility] Facial fracture active 2023-09-22 ProblemAct [facility] Rib fractures active 2023-09-22 ProblemAct [facility] Impaired mobility active 2023-10-10 ProblemAct [facility] Fracture of right scapula active 2023-09-22 ProblemAct [facility] Rhinophyma active 2023-09-22 ProblemAct [facility] Mild cognitive disorder active 2024-03-09 ProblemAct [facility] Facial nerve paralysis active EncounterDiagnosisAct [facility] Hypertension active 2024-03-09 ProblemAct [facility] Immunizations Vaccine Date Source Lot Number Status Influenza Virus Trivalent Sp lit Vaccine (MDV) IM 03/12/2022 [facility] [id number] completed Influenza Virus Trivalent Sp lit Vaccine (MDV) IM 02/02/2021 [facility] [id number] completed Pneumococcal Polysaccharide 23-Valent 10/13/2020 [facility] [id number] completed Tdap 10/01/2018 [facility] [id number] completed Pneumococcal Conjugate 13-Valent 07/18/2017 [facility] [id number] completed Influenza Virus Trivalent Sp lit Vaccine (MDV) IM 03/23/2016 [facility] [id number] completed Influenza Virus Trivalent Sp lit Vaccine (MDV) IM 12/25/2010 [facility] UNK completed Influenza Virus Trivalent Sp lit Vaccine (MDV) IM 12/28/2009 [facility] UNK completed Pneumococcal Polysaccharide 23-Valent 12/28/2009 [facility] UNK completed Td, Unspecified 04/08/2009 [facility] [id number] completed Encounters Encounter Type Encounter Reason Primary Diagnosis Location Date Ambulatory Follow-up Follow[facility]up [facility] 03/12/2024 Ambulatory Follow-up Follow-up [facility] 01/28/2024 Care Team Organization Name Specialty Phone Email Start Date End Da michael [employer] (acquired by [employer]) [facility] 03/09/2024 [employer] [facility] 01/30/2024 06/10/2024 [employer] [facility] [facility] [employer] 01/11/2024
== END 2025-01-19 11:17 | disposition home or self-care (01) ==
LOC: HO.HMCHD 09:25
PROVIDERS: Visit Provider Internal Medicine
DX: F03.90 Unspecified dementia, unspecified severity, without behavioral disturbance, psychotic disturbance, mood disturbance, and anxiety (principal); M79.89 Other specified soft tissue disorders; L71.9 Rosacea, unspecified; F41.9 Anxiety disorder, unspecified

== ENCOUNTER → 2025-01-19 09:24 | Outpatient (BNVA) | payer MEDICARE, SELFPAY | PROVIDERS: Visit Provider Internal Medicine | DX: Z76.89 Persons encountering health services in other specified circumstances (principal); F03.90 Unspecified dementia, unspecified severity, without behavioral disturbance, psychotic disturbance, mood disturbance, and anxiety; M79.89 Other specified soft tissue disorders; L71.9 Rosacea, unspecified; F41.9 Anxiety disorder, unspecified; I48.91 Unspecified atrial fibrillation; Z86.718 Personal history of other venous thrombosis and embolism; Z87.820 Personal history of traumatic brain injury; Z79.899 Other long term (current) drug therapy | CPT/HCPCS: 99212 ==

== ENCOUNTER 2025-01-25 14:59 | Outpatient (REF) | payer MEDICARE, SELFPAY ==
--- NOTE | ~2025-01-25 | US_ITS ---
EXAMINATION: US LOWER EXTREMITY VEINS BILATERAL HISTORY: r/o DVT, lower extremity swelling COMPARISON: There are no prior studies available for comparison. TECHNIQUE: Duplex and color Doppler sonographic examination of the deep venous system of the bilateral lower extremities was performed. FINDINGS: The right common femoral, superficial femoral, and popliteal veins are patent demonstrating normal compressibility, spontaneous flow, and augmentation. There is a normal color and spectral Doppler waveform appearance of the visualized deep venous system above the knee. The posterior tibial and peroneal veins are patent. The left common femoral, superficial femoral, and popliteal veins are patent demonstrating normal compressibility, spontaneous flow, and augmentation. There is a normal color and spectral Doppler waveform appearance of the visualized deep venous system above the knee. The posterior tibial and peroneal veins are patent. US/US venous duplex LE BI IMPRESSION: No evidence of acute DVT in the bilateral lower extremities. Electronically signed by: Jono Wen MD 01/25/2025 03:35 PM [email or web address]
== END 2025-01-25 15:00 | disposition home or self-care (01) ==
LOC: HO.US 14:59
PROVIDERS: PCP Internal Medicine; Visit Provider Internal Medicine
DX: R22.43 Localized swelling, mass and lump, lower limb, bilateral (principal)
CPT/HCPCS: 93970

== ENCOUNTER → 2025-01-25 15:01 | Outpatient (BNV) | payer MEDICARE, SELFPAY | PROVIDERS: PCP Internal Medicine; Visit Provider Radiology Diagnostic Radiology | DX: R22.43 Localized swelling, mass and lump, lower limb, bilateral (principal) | CPT/HCPCS: 93970 ==

== ENCOUNTER 2025-02-04 08:50 | Outpatient (REF) | payer MEDICARE, SELFPAY ==
[2025-02-04 10:31] LABS: MANUAL DIFF FLAG NO
[2025-02-04 10:47] LABS: Hematocrit 36.5 % (42.0-52.0); Hemoglobin 11.5 g/dl (14.0-18.0); Imm Gran Abs Auto 0.02 X10*3/uL (0.00-0.03); Imm Gran Pct Auto 0.3 % (0.0-0.4); Lymphocytes Absolute Auto 1.9 X10*3/uL (1.2-4.9); Mean Corpuscular HGB Conc 31.5 g/dl (31.0-36.0); Mean Corpuscular Hemoglobin 28.6 pg (27.0-33.0); Mean Corpuscular Volume 90.8 fL (80.0-98.0); NRBC Abs Auto 0.000 X10*3/uL (0.0-0.012); NRBC Pct Auto 0.0 /100WBC (0.0-0.2); Platelet Count 194 X10*3/uL (160-400); Red Blood Count 4.02 X10*6/uL (4.60-5.80); White Blood Count 7.4 X10*3/uL (4.8-10.8)
[2025-02-04 11:56] LABS: Alanine Aminotransferase 19 U/L (0-40); Albumin Level 3.9 g/dL (3.5-5.0); Alkaline Phosphatase 113 U/L (39-117); Anion Gap 10 (12-20); Aspartate Amino Transferase 32 U/L (5-37); Blood Urea Nitrogen 20 mg/dL (9-16); Calcium 9.2 mg/dL (8.4-10.2); Carbon Dioxide 28 mmol/L (22-29); Chloride 109 mmol/L (96-108); Cholesterol 165 mg/dL (<200); Estimated Glomerular Filt Rate > 60; HDL Cholesterol 34 mg/dL (>40); Potassium 4.1 mmol/L (3.3-5.1); Sodium 143 mmol/L (135-145); Total Protein 7.0 g/dL (6.5-8.0); Triglycerides 79 mg/dL (<150)
== END 2025-02-04 08:51 | disposition home or self-care (01) ==
LOC: HO.HMGCLDS 08:50
PROVIDERS: PCP Internal Medicine; Visit Provider Internal Medicine
DX: F03.90 Unspecified dementia, unspecified severity, without behavioral disturbance, psychotic disturbance, mood disturbance, and anxiety (principal); M79.89 Other specified soft tissue disorders; Z13.6 Encounter for screening for cardiovascular disorders
CPT/HCPCS: 36415; 80053; 80061; 85025